=== PATIENT | female | born 1950 | race Caucasian/White ===

== ENCOUNTER 2023-12-24 12:07 | Emergency (ER) | payer MEDICARE, OTHER, SELFPAY ==
[2023-12-24] VITALS (11 sets, daily range): BP systolic 117–164; BP diastolic 58–146; PULSE 71–74; BMI 28.8
[2023-12-24 12:34] LABS: % Basophils 0.4 % (0-2); % Eosinophils 3.7 % (0-6); % Immature Granulocytes 0.2 % (0-0.5); % Lymphocytes 21.8 % (20.5-51.1); % Monocytes 7.3 % (1.7-9.3); % Neutrophils 66.6 % (42.2-75.2); Absolute Eosinophils 0.2 10^3/uL (0-0.7); Absolute Lymphocytes 1.2 10^3/uL (1.2-3.4); Absolute Monocytes 0.4 10^3/uL (0.1-0.6); Absolute Neutrophils 3.8 10^3/uL (1.4-6.5); Hematocrit 32.2 % (37.0-47.0); Hemoglobin 10.8 g/dL (12.0-16.0); Mean Corp Hgb Conc. 33.5 g/dL (33.0-37.0); Mean Corpuscular Hgb 29.9 pg (27.0-31.0); Mean Corpuscular Volume 89.2 fL (81.0-99.0); Mean Platelet Volume 9.9 fL (7.4-10.4); Nucleated Red Blood Cells % 0 %; Platelet Count 149 10^3/uL (130-400); Red Blood Cell Count 3.61 10^6/uL (4.20-5.40); Red Cell Dist. Width 13.2 % (11.5-14.5); White Blood Cell Count 5.7 10^3/uL (4.8-10.8)
[2023-12-24 12:49] LABS: INR 3.47; PT 35.5 Sec (11.4-14.6)
[2023-12-24 12:57] LABS: Troponin I < 0.012 ng/ml
[2023-12-24 13:00] LABS: ALT (SGPT) 15 U/L (0-35); AST (SGOT) 27 U/L (14-36); Albumin 3.6 g/dl (3.5-5.0); Alkaline Phosphatase 53 U/L (38-126); Blood Urea Nitrogen 20 mg/dl (7-17); Calcium 8.9 mg/dl (8.4-10.2); Carbon Dioxide 22 mmol/L (22-30); Chloride 106 mmol/L (98-107); Estimated Creatinine Clearance 50 ml/min; Glucose 97 mg/dl (70-99); Potassium 4.3 mmol/L (3.5-5.1); Sodium 137 mmol/L (135-145); Total Bilirubin 0.5 mg/dl (0.2-1.3); Total Protein 5.8 g/dl (6.3-8.2); eGFR 53.39
--- NOTE | 2023-12-24 13:42 | ED.GENMED ---
History of Present Illness
General
Chief Complaint: Fainting/Passed Out
Source: patient
Exam Limitations: none
Time Seen by Provider: 12/24/23 13:23
History of Present Illness
History of Present Illness:
73-year-old female on Coumadin for history of stroke several years ago presents after what sounds like syncopal episode. She was in the yard picking up some leaves and talking to her neighbor. Her neighbor noticed her to be faint and pale in
color. The patient remembers feeling faint and her neighbor let her down to the ground the patient remembers waking up on the ground. She apparently sustained no injuries from this episode. There was no preceding chest pain. No shortness of
breath. She is left with a sensation of fatigue and pressure in her head. She denies vision changes unilateral weakness. No recent nausea vomiting fever. She denies any recent bleeding however she was admitted overnight at [facility] 3
weeks ago for hematuria and suspected urinary tract infection. She took 2 doses of the antibiotics but did not finish them. She has no urinary symptoms currently.
Phy Exam
Physical Exam
Physical Exam:
General: Well-appearing female no acute respiratory distress
HEENT: Normal cephalic atraumatic pupils equal round reactive to light
Heart: Regular rate and rhythm no murmur
Lungs: Clear no wheeze
Neurologic exam: Alert and oriented x 3 no facial asymmetry no drift on exam pupils equal round react light extract motion intact no nystagmus finger-nose [id number] intact
Skin is warm no rash
Extremities: No cyanosis
Course
Orders/Labs/Results
Orders:
Orders
12/24/23 12:23
Complete Blood Count/With Diff Urgent
Comprehensive Metabolic Panel Urgent
Prothrombin Time Urgent
Troponin I Urgent
12/24/23 12:41
EKG [Electrocardiogram (*1)] Urgent
Reason for Study: Fatigue / Weakness
EKG- Treatment ONCE
12/24/23 13:41
CT Head W/o Iv Contrast Urgent
Comment:
Reason For Exam: syncope
Orthostatic VS- Treatment ONCE
12/24/23 13:50
Urinalysis Reflex To Culture Urgent
Date Specimen was Collected: 12/24/23
Time Specimen was Collected: 13:46
Abnormal Lab Results
12/24/23 12/24/23
12:23 13:50
RBC 3.61 L 10^6/uL
(4.20-5.40)
Hgb 10.8 L g/dL
(12.0-16.0)
Hct 32.2 L %
(37.0-47.0)
PT 35.5 H Sec
(11.4-14.6)
BUN 20 H mg/dl
(7-17)
Creatinine 1.1 H mg/dL
(0.6-1.0)
Total Protein 5.8 L g/dl
(6.3-8.2)
Urine Ketones Trace A
(Negative)
12/24/23 12:23
12/24/23 12:23
Vital Signs
Initial and Last Documented VS:
Initial Vital Signs
Pulse BP
58 125/59
12/24/23 12:12 12/24/23 12:12
Last Documented Vital Signs
Temp Pulse Resp BP Pulse Ox
98.2 F 78 17 155/75 98
12/24/23 12:15 12/24/23 15:25 12/24/23 15:25 12/24/23 13:51 12/24/23 15:25
MDM/Problems Addressed
Differential Diagnosis Includes:
Syncope versus presyncope. Consider anemia versus electrolyte abnormality versus arrhythmia versus vasovagal response. She also has pressure in her head since the episode. She is anticoagulated. Will check INR and CT of head. Orthostatic vital
signs pending.
*Critical Care Note
Total Time (30-74mins, 75-104mins- exclusive of procedures): Not Applicable
Update Note
Update Note:
No arrhythmias noted on monitor here orthostatic vital signs are stable CT of the head shows an old infarct. INR is 3.4. She has been stable. She ambulated to the bathroom without any presyncopal symptoms. No further chest pain. Reassured
patient. Suspect possible vasovagal episode recommend follow-up with her family doctor.
ED Attending Note
-
Portions of this chart may have been created with voice recognition software.� Occasional wrong word or��sound alike� substitutions may have occurred due to the inherent limitations of voice recognition software.
Discharge Plan
Departure
Patient Disposition: Home (Routine Discharge)
Date of Disposition: 12/24/23
Time of Disposition: 15:35
Patient with high blood pressure during this ER visit?: No
Discharge Problem:
Syncope
Instructions: Syncope (Fainting) (DC)
Prescriptions:
No Action
warfarin 10 mg Tablet
10 mg PO DAILY
Referrals:
Eduar Cardoso MD [Family Provider] -
Activity Restrictions/Additional Instructions:
Please return here for worsening symptoms. As discussed, your INR today is 3.4. Follow-up with your family doctor for further recommendation consider either holding a dose or taking half of your scheduled dose tomorrow.
Interventions
Interventions:
*Risk Screen - Suicide Last Done: 12/24/23 12:15
*General Assessment Last Done: 12/24/23 12:15
*Neglect/Abuse Screening Last Done: 12/24/23 12:15
ED- Fall Risk Assessment Last Done: 12/24/23 12:15
*ED COVID-19 Vaccine History Last Done: 12/24/23 12:15
ED- Cardiac Assessment Last Done: 12/24/23 12:15
ED- Neurological Assessment Last Done: 12/24/23 12:34
Discharge Date and Time
Print Language: UPPER SORBIAN
[2023-12-24 14:14] LABS: Urine Albumin Negative (Neg - Trace); Urine Bilirubin Negative (Negative); Urine Character Clear (Clear); Urine Color Yellow; Urine Glucose Negative (Negative); Urine Ketone Trace (Negative); Urine Leukocyte Negative (Negative); Urine Nitrite Negative (Negative); Urine Occult Blood Negative (Negative); Urine Urobilinogen Negative (Neg - 1+); Urine pH 6.5 (5.0-9.0)
== END 2023-12-24 16:17 | disposition home or self-care (01) ==
LOC: EMR 12:07
PROVIDERS: Emergency Medicine; Physician Assistant; EMERGENCY PHYSICIAN Emergency Medicine; FAMILY PHYSICIAN Internal Medicine
DX: R55 Syncope and collapse (principal); Z79.01 Long term (current) use of anticoagulants; Z86.73 Personal history of transient ischemic attack (TIA), and cerebral infarction without residual deficits
CPT/HCPCS: 99284; 70450; 80053; 81003; 84484; 85025; 85610; 93005

== ENCOUNTER 2024-01-08 06:29 | Observation (INO) | payer MEDICARE, OTHER, SELFPAY ==
[2024-01-08] VITALS (19 sets, daily range): BP systolic 130–181; BP diastolic 62–93; PULSE 68–88; BMI 27.9
[2024-01-08 01:29] LABS: % Basophils 0.7 % (0-2); % Eosinophils 4.6 % (0-6); % Immature Granulocytes 0.3 % (0-0.5); % Lymphocytes 31.1 % (20.5-51.1); % Monocytes 7.9 % (1.7-9.3); % Neutrophils 55.4 % (42.2-75.2); Absolute Eosinophils 0.3 10^3/uL (0-0.7); Absolute Lymphocytes 1.9 10^3/uL (1.2-3.4); Absolute Monocytes 0.5 10^3/uL (0.1-0.6); Absolute Neutrophils 3.4 10^3/uL (1.4-6.5); Hemoglobin 11.1 g/dL (12.0-16.0); Mean Corp Hgb Conc. 34.7 g/dL (33.0-37.0); Mean Corpuscular Hgb 29.5 pg (27.0-31.0); Mean Corpuscular Volume 85.1 fL (81.0-99.0); Mean Platelet Volume 9.7 fL (7.4-10.4); Nucleated Red Blood Cells % 0 %; Platelet Count 151 10^3/uL (130-400); Red Blood Cell Count 3.76 10^6/uL (4.20-5.40); Red Cell Dist. Width 13.4 % (11.5-14.5); White Blood Cell Count 6.1 10^3/uL (4.8-10.8)
[2024-01-08 01:36] LABS: INR 2.28; PT 25.6 Sec (11.4-14.6)
--- NOTE | 2024-01-08 01:42 | ED.GENMED ---
History of Present Illness
<SHAY Conti - Last Filed: 01/08/24 22:08>
General
Chief Complaint: Dizziness
Source: patient
Exam Limitations: none
Time Seen by Provider: 01/08/24 01:05
Nursing documentation reviewed up to this point in time: agreed with
History of Present Illness
History of Present Illness:
Patient is a 73yo F w/ recent visit to ER for syncope presents today w/ continued dizziness and new L arm pain. She has been seeing a belling machine operator, had echo, and just finished Holter monitoring. States she knows something is wrong w/ her heart but
she doesn't know what. L arm pain developed tonight and concerned pt that she was having an TN. She reports pain from anterior shoulder to elbow. States pain is not in shoulder but upper arm. Unable to describe quality of pain but reports it is
constant. Denies chest pain and numbness/tingling in either arm. Admits to mild CATHERINE in center of forehead radiating up scalp x5days. Reports lisinopril incr 5 to 10mg about 1.5wk ago.
Review of Systems
<SHAY Conti - Last Filed: 01/08/24 22:08>
Review of Systems
Constitutional: Denies fever, fatigue or chills
Respiratory: Reports trouble breathing; Denies cough
Cardiac: Reports syncope; Denies chest pain or palpitations
ABD/GI: Denies abdominal pain, nausea, vomiting, diarrhea or constipated
: Denies dysuria
Musculoskeletal: Reports muscle pain; Denies joint pain
Neurological: Reports headache; Denies dizzy, weakness or numbness
Phy Exam
<SHAY Conti - Last Filed: 01/08/24 22:08>
General Physical Exam
General Presentation: no apparent distress
General age: appears stated age
General Skin: warm and dry
General Habitus: normal
General Mental: alert
Cardiovascular Exam
Cardiovascular Exam: regular rate/rhythm, no edema, no gallop and no murmur
Pulmonary Exam
Pulmonary Exam: lungs clear, no respiratory distress, no rales, no crackles, no rhonchi and no wheezing
Neurological Exam
Neurological Exam: alert, oriented x3, no motor deficits, no sensory deficits and speech normal
Musculoskeletal Exam
Musculoskeletal Exam: full ROM, no edema and other (TTP over L bicipital groove )
Course
<Fiona Serrano, STPA - Last Filed: 01/08/24 22:08>
Orders/Labs/Results
Orders:
Orders
01/08/24 01:06
EKG [Electrocardiogram (*1)] Urgent
Reason for Study: Vertigo / Dizzy
EKG- Treatment ONCE
01/08/24 01:15
Complete Blood Count/With Diff Urgent
Comprehensive Metabolic Panel Urgent
PT/INR [Prothrombin Time] Urgent
Troponin I Urgent
01/08/24 02:44
Orthostatic VS- Treatment ONCE
01/08/24 02:45
CXR2 [CR Chest - 2 Views ] Urgent
Comment:
Reason For Exam: SOB
01/08/24 05:27
CT Head W/o Iv Contrast Urgent
Comment:
Reason For Exam: dizziness
01/08/24 Breakfast
Cholesterol Lowering
At Your Request: Full Participation
Does patient need a safe tray?: No
Fluid Restriction: 1500 mL/day (50 oz)
Cholesterol Lowering: Sodium, 2 Gram
01/08/24 06:10
Admit/Transfer Patient As Directed
Co-Sign Provider:
Level of Care: Observation services
Assign to:: Telemetry
Physician / Group: Hospitalist
Diagnosis: Dizziness
Reason for Telemetry: Syncope
Date to Stop Telemetry: 01/10/24
Time to Stop Telemetry: 11:00
Code Status As Directed
Resuscitation Status: Full Code
PRN Pain Medication Management As Directed
May give lesser potent ordered pain med per pt: Yes
preference::
Protocol:: Medication orders for pain may be administered in a
manner that supports deferring to patient preference
when the pt is:
- Requesting an ordered lesser potent pain medication.
Least to most potent pain medications are defined
as: acetaminophen < NSAID < tramadol < opioids
(morphine, oxycodone, hydromorphone).
- Requesting a lesser dose of the same medication IF
ORDERED.
- Requesting a less intrusive route of administration
if both routes are prescribed by the provider (PO <
IV).
01/08/24 07:33
Acetaminophen [Tylenol] 650 mg PO Q4HPRN PRN
Bisacodyl [Dulcolax] 10 mg RECTAL [id number] PRN
Docusate W/Senna [Senokot-S] 1 tablet PO BIDPRN PRN
Ondansetron Injectable [Zofran] 4 mg IV Q6HPRN PRN
Polyethylene Glycol Powder [Miralax] 17 grams PO DAILYPRN PRN
01/08/24 07:33
CT Head & Neck Angio W/wo IV Urgent
Comment:
Reason For Exam: possible subacute CVA, assess posterior circulatio
VTE Contraindication Routine
VTE Mechanical Device Contraindication: Medical Contraindication
Pharmocologic Contraindication: Medical Contraindication
Activity As Directed
Activity Level: With Assistance
Medical Records Request [Obtain Records] As Directed
Dates of Information to be Released: Dec 23 to January 07 2024
Type of Information Requested: Consults
ECG/Cardiology Results
Obtain Records from: Dr. Andre Rucker [phone], [address] [facility]
Vital Signs As Directed
Frequency: Per unit guidelines
01/08/24 08:00
Lacosamide [Vimpat] 150 mg PO BID
Lisinopril [Zestril] 10 mg PO DAILY
Warfarin [Coumadin] 10 mg PO DAILY
01/08/24 16:42
Urine Osmolality Random [Osmolality, Random Urine] Routine
Date Specimen was Collected: 01/08/24
Time Specimen was Collected: 16:36
Urine Sodium Routine
Date Specimen was Collected: 01/08/24
Time Specimen was Collected: 16:36
01/09/24 06:00
Basic Metabolic Panel IN AM
TSH Reflex To Free T4 IN AM
01/10/24 11:00
DC Protocol for Telemetry ONCE
Abnormal Lab Results
01/08/24
01:15
RBC 3.76 L 10^6/uL
(4.20-5.40)
Hgb 11.1 L g/dL
(12.0-16.0)
Hct 32.0 L %
(37.0-47.0)
PT 25.6 H Sec
(11.4-14.6)
Sodium 133 L mmol/L
(135-145)
Glucose 109 H mg/dl
(70-99)
01/08/24 01:15
01/08/24 01:15
Vital Signs
Initial and Last Documented VS:
Initial Vital Signs
Temp Pulse Resp BP Pulse Ox
97.5 F 78 16 174/89 99
01/08/24 01:07 01/08/24 01:07 01/08/24 01:07 01/08/24 01:07 01/08/24 01:07
Last Documented Vital Signs
Temp Pulse Resp BP Pulse Ox
97.9 F 78 18 169/77 98
01/08/24 19:33 01/08/24 19:33 01/08/24 19:33 01/08/24 19:33 01/08/24 19:33
<Damaso Waite, DO - Last Filed: 01/08/24 05:27>
Orders/Labs/Results
Orders:
Orders
01/08/24 01:06
EKG [Electrocardiogram (*1)] Urgent
Reason for Study: Vertigo / Dizzy
EKG- Treatment ONCE
01/08/24 01:15
Complete Blood Count/With Diff Urgent
Comprehensive Metabolic Panel Urgent
PT/INR [Prothrombin Time] Urgent
Troponin I Urgent
01/08/24 02:44
Orthostatic VS- Treatment ONCE
01/08/24 02:45
CXR2 [CR Chest - 2 Views ] Urgent
Comment:
Reason For Exam: SOB
01/08/24 05:27
CT Head W/o Iv Contrast Urgent
Comment:
Reason For Exam: dizziness
01/08/24 Breakfast
Cholesterol Lowering
At Your Request: Full Participation
Does patient need a safe tray?: No
Fluid Restriction: 1500 mL/day (50 oz)
Cholesterol Lowering: Sodium, 2 Gram
01/08/24 06:10
Admit/Transfer Patient As Directed
Co-Sign Provider:
Level of Care: Observation services
Assign to:: Telemetry
Physician / Group: Hospitalist
Diagnosis: Dizziness
Reason for Telemetry: Syncope
Date to Stop Telemetry: 01/10/24
Time to Stop Telemetry: 11:00
Code Status As Directed
Resuscitation Status: Full Code
PRN Pain Medication Management As Directed
May give lesser potent ordered pain med per pt: Yes
preference::
Protocol:: Medication orders for pain may be administered in a
manner that supports deferring to patient preference
when the pt is:
- Requesting an ordered lesser potent pain medication.
Least to most potent pain medications are defined
as: acetaminophen < NSAID < tramadol < opioids
(morphine, oxycodone, hydromorphone).
- Requesting a lesser dose of the same medication IF
ORDERED.
- Requesting a less intrusive route of administration
if both routes are prescribed by the provider (PO <
IV).
01/08/24 07:33
Acetaminophen [Tylenol] 650 mg PO Q4HPRN PRN
Bisacodyl [Dulcolax] 10 mg RECTAL [id number] PRN
Docusate W/Senna [Senokot-S] 1 tablet PO BIDPRN PRN
Ondansetron Injectable [Zofran] 4 mg IV Q6HPRN PRN
Polyethylene Glycol Powder [Miralax] 17 grams PO DAILYPRN PRN
01/08/24 07:33
CT Head & Neck Angio W/wo IV Urgent
Comment:
Reason For Exam: possible subacute CVA, assess posterior circulatio
VTE Contraindication Routine
VTE Mechanical Device Contraindication: Medical Contraindication
Pharmocologic Contraindication: Medical Contraindication
Activity As Directed
Activity Level: With Assistance
Medical Records Request [Obtain Records] As Directed
Dates of Information to be Released: Dec 23 to January 07 2024
Type of Information Requested: Consults
ECG/Cardiology Results
Obtain Records from: Dr. Andre Rucker [phone], [address] [facility]
Vital Signs As Directed
Frequency: Per unit guidelines
01/08/24 08:00
Lacosamide [Vimpat] 150 mg PO BID
Lisinopril [Zestril] 10 mg PO DAILY
Warfarin [Coumadin] 10 mg PO DAILY
01/08/24 16:42
Urine Osmolality Random [Osmolality, Random Urine] Routine
Date Specimen was Collected: 01/08/24
Time Specimen was Collected: 16:36
Urine Sodium Routine
Date Specimen was Collected: 01/08/24
Time Specimen was Collected: 16:36
01/09/24 06:00
Basic Metabolic Panel IN AM
TSH Reflex To Free T4 IN AM
01/10/24 11:00
DC Protocol for Telemetry ONCE
Abnormal Lab Results
01/08/24
01:15
RBC 3.76 L 10^6/uL
(4.20-5.40)
Hgb 11.1 L g/dL
(12.0-16.0)
Hct 32.0 L %
(37.0-47.0)
PT 25.6 H Sec
(11.4-14.6)
Sodium 133 L mmol/L
(135-145)
Glucose 109 H mg/dl
(70-99)
01/08/24 01:15
01/08/24 01:15
Vital Signs
Initial and Last Documented VS:
Initial Vital Signs
Temp Pulse Resp BP Pulse Ox
97.5 F 78 16 174/89 99
01/08/24 01:07 01/08/24 01:07 01/08/24 01:07 01/08/24 01:07 01/08/24 01:07
Last Documented Vital Signs
Temp Pulse Resp BP Pulse Ox
97.9 F 78 18 169/77 98
01/08/24 19:33 01/08/24 19:33 01/08/24 19:33 01/08/24 19:33 01/08/24 19:33
<SHAY Conti - Last Filed: 01/08/24 22:08>
*Critical Care Note
Total Time (30-74mins, 75-104mins- exclusive of procedures): Not Applicable
<Damaso Waite DO - Last Filed: 01/08/24 05:27>
Update Note
Update Note:
01/08/2024 0527 AM
ED Attending Note
<SHAY Conti - Last Filed: 01/08/24 22:08>
-
Portions of this chart may have been created with voice recognition software.� Occasional wrong word or��sound alike� substitutions may have occurred due to the inherent limitations of voice recognition software.
<Damaso Waite DO - Last Filed: 01/08/24 05:27>
ED Attending Note
Patient seen and examined by attending physician: Yes
I performed the substantive portion of visit, reviewed & personally made and approve the management plan that is documented in note by myself or EUSEBIA.: Yes
ED Attending Note:
Pleasant 73-year-old female presents to the emergency department with dizziness. Patient also reports having a syncopal episode earlier today. Patient has been seen by Dr. Rucker for the dizziness and syncope. She had an echo cardiogram and has
been on a Holter monitor. Patient states that she has an appointment tomorrow morning with her belling machine operator for follow-up. Denies fevers, chills, chest pain, or shortness of breath. Patient was seen in conjunction with the PA student. I have
reviewed and agree with the history and treatment plan presented. On my independent physical exam, patient is awake, alert, and oriented x3 no acute distress. Heart is regular rate rhythm. Lungs are clear to auscultation bilaterally without
wheezes rales or rhonchi. Abdomen is soft nontender to deep or superficial palpation. Normal bowel sounds. Moves all 4 extremities.
Discharge Plan
Departure
Patient Disposition: Admit
Date of Disposition: 01/08/24
Time of Disposition: 04:35
Admit to: Med/Surg
Presentation/result/management discussed w/ accepting MD/DO: Hospitalist
Patient with high blood pressure during this ER visit?: Yes
Condition: Good
Discharge Problem:
Dizziness
Interventions
Interventions:
*Risk Screen - Suicide Last Done: 01/08/24 01:07
*General Assessment Last Done: 01/08/24 01:07
*Neglect/Abuse Screening Last Done: 01/08/24 01:07
ED- Fall Risk Assessment Last Done: 01/08/24 01:15
*ED COVID-19 Vaccine History Last Done: 01/08/24 07:23
*Nursing Disposition Last Done: 01/08/24 07:23
ED- Cardiac Assessment Last Done: 01/08/24 01:41
ED- Neurological Assessment Last Done: 01/08/24 01:41
ED Swallowing Screen Last Done: 01/08/24 01:41
Discharge Date and Time
Discharge Date/Time: 01/08/24 07:24
[2024-01-08 01:43] LABS: ALT (SGPT) 15 U/L (0-35); AST (SGOT) 28 U/L (14-36); Alkaline Phosphatase 68 U/L (38-126); Blood Urea Nitrogen 17 mg/dl (7-17); Carbon Dioxide 26 mmol/L (22-30); Chloride 99 mmol/L (98-107); Estimated Creatinine Clearance 55 ml/min; Glucose 109 mg/dl (70-99); Potassium 3.9 mmol/L (3.5-5.1); Sodium 133 mmol/L (135-145); Total Bilirubin 0.6 mg/dl (0.2-1.3); Total Protein 6.4 g/dl (6.3-8.2); eGFR 59.86
[2024-01-08 01:49] LABS: Troponin I < 0.012 ng/ml
--- NOTE | 2024-01-08 05:52 | HPS.HSE ---
Family Physician
-
Family Physician: Eduar Cardoso
Chief Complaint
-
Lightheadedness
History of Present Illness
This is a 73-year-old female with past medical history significant for prior CVA for which she is on Coumadin, hypertension, history of absent seizures for which she is on lacosamide who presents to the emergency department with persistent episodes
of lightheadedness has been going on for about 3 weeks.
Patient reports onset of symptoms at least 3 weeks ago. He was seen in the ED then. She reports that she gets dizzy after standing for a short while. She also reports dizziness with rapidly standing up. She had an episode of presyncope 3 weeks
ago for which she presented to the emergency department. She denies having palpitations. Generally does not have chest pain. However she reports that she had some tingling sensation going down her left arm today which she thought may be
correlated with her heart. She reports mild shortness of breath as though she cannot take a deep breath. She denies any pleuritic symptoms. She has discontinued the Coumadin and denies any melena or hematochezia. INR has always been therapeutic.
She has been compliant with the lacosamide. During her last visit to the emergency department she was given IV fluids she was stable enough to ambulate and follow-up with her PMD and ultimately with a practice physician. She had extensive blood testing
and then had a cardiology follow-up with echo reported to be normal and Holter monitoring that she completed yesterday with intending follow-up with cardiology in 1 to 2 days.
Patient specifically denies vertigo. She denies any vision changes associated with this dizziness. She denies any headache but reports some sense of head fullness. She denies ataxia in the absence of the dizziness. Although the workup so far
been negative patient feels very strongly that she has persistent sensation of lightheadedness resulting in severe on dizziness and discomfort. Patient denies any urinary symptoms. She denies any nausea vomiting or diarrhea.
On arrival in the ED today she was hypertensive to 173/80 pulse was 76 and she was satting 97% on room air. ECG shows normal sinus rhythm at a rate of [address] or T wave changes. QTc was within normal limits. Troponin was negative.
Chest x-ray was clear without any infiltrates. Chemistries notable for a sodium of 133 which is trended down from a normal of 137 2 weeks ago but she has been drinking lots of water.
Medical History
Past Medical History
Past Medical History: Reports CVA and HTN
Additional Past Medical History:
Seizure d/o (absence seizures)
Past Surgical History: Reports Orthopedic (left forearm dislocation)
Social History
Tobacco: Non-smoker
Alcohol: None
Drug: None
Personal: Single
Living: Alone
Employment: Retired
Family History
Family History: Not pertinent
Allergies / Home Medications
Allergies reflects when Allergies were last updated in [facility].
Home Medications with original date entered in [facility]
Allergy/Medication List:
Allergies
Allergy/AdvReac Type Severity Reaction Status Date / Time
Penicillins Allergy Unknown Unknown Verified 01/08/24 01:40
Home Medications
warfarin 10 mg tablet 10 mg PO DAILY 12/24/23
Lacosamide 150mg tablet, 150mg PO BID
Lisinopril 10 mg tablet, 10 mg p.o. daily
Review of Systems
-
History Source: Patient
Constitutional: Reports No Symptoms
EENT: Reports No Symptoms
Respiratory: Reports No Symptoms
Cardiac: Reports No Symptoms
Abdomen/GI: Reports No Symptoms
: Reports No Symptoms
Musculoskeletal: Reports No Symptoms
Skin: Reports No Symptoms
Neurological: Reports Dizzy
Endocrine: Reports No Symptoms
Hematologic/Lymphatic: Reports No Symptoms
Psych: Reports No Symptoms
Physical Exam
Vital Signs
Vital Signs
Temp Pulse Resp BP Pulse Ox
97.5 F 76 17 173/80 98
01/08/24 01:07 01/08/24 04:17 01/08/24 04:17 01/08/24 04:17 01/08/24 04:00
Physical Exam
General: Well Developed, Well Nourished and Comfortable
HEENT: NormoCephalic, Anicteric, Moist mucous membranes and Atraumatic
Respiratory: Clear
Cardiac: S1/S2 and Regular Rhythm
GI: Soft, Non Tender, Non Distended and Normal Bowel Sounds
Rectal: Deferred by Provider
Genito-urinary: Deferred by me
Musculoskeletal: No Clubbing, No Cyanosis and No Edema
Skin: Warm
Neuro: AO x 3 and Nonfocal/grossly intact
Hematologic/Lymphatic: No Lymphadenopathy
Psych: Anxious
Laboratory Results
-
01/08/24 01:15
01/08/24 01:15
Laboratory Results
PT 25.6 Sec (11.4-14.6) H 01/08/24 01:15
INR 2.28 01/08/24 01:15
Total Bilirubin 0.6 mg/dl (0.2-1.3) 01/08/24 01:15
AST 28 U/L (14-36) 01/08/24 01:15
ALT 15 U/L (0-35) 01/08/24 01:15
Alkaline Phosphatase 68 U/L (38-126) 01/08/24 01:15
Troponin I < 0.012 ng/ml 01/08/24 01:15
Data Reviewed
-
Diagnostic Radiology: Image Personally Visualized and interpreted
Medical Tests (Nuc Med, Echo, EKG etc): Image Personally Visualized and interpreted
Lab Data: Labs Reviewed by me
Old Records: Reviewed
Impression/Plan
-
IMPRESSION:
Patient with h/o CVA and seizures presenting with 3 weeks of recurrent lightheadedness that appears orthostatic as often associated with standing and almost never while supine or sitting. ED w/u on both occasions have been negative. She apparently
had echo done with Dr. Andre Rucker that was reported to be without acute abnormalities. No evidence of heart failure. No evidence of acute stroke. No evidence of any blood loss. She has been having rising BP since episode began but she did not
have positive orthostatic findings in the ED. Suppose to get f/u with cardiology today 01/07.
PLAN:
1. Dizziness - Dizziness that appears orthostatic with normal orthostatic vital signs and so far negative cardiac w/u. Prior CVA on coumadin without residual deficits and no new current symptoms. ECG is non-ischemic, no arrhythmia. Normal
troponin. Xray clear and no signs of infection. Labs WNL. INR therapeutic. She is quite anxious because the sensation is incongruent with w/u thus far.
- admit to obs/telemetry
- check telemetry x 24 hours and correlate with symptoms
- obtain records from Dr. Rucker of recent echo. Perhaps we can get holter records today
- given persistent of symptoms unlikely CVA but cannot rule out vertebrobasilar insufficency. will get CT CTA
2. Hyponatremia - Na 133 down from 137. Patient has had increased water intake, is hypertensive and on lacosamide. She is not dehydrated.
- check urine osms
- intracranial imaging with CT / CTA
- mild fluid restriction for now
3. Seizures
- continue lacosamide
4. PT evaluation
DVT PPX - on coumadin
Code Status - Full Code
--- NOTE | 2024-01-08 08:34 | PTCARENOTE ---
Received patient from ED via stretcher approx 7:30am. Pt AAOX3. NSR on tele monitor. Pox: 97% RA. Patient denies pain/SOB. Call segovia within reach. Plan of care ongoing.
[2024-01-08] MEDS: ZESTRIL 10 MG PO (09:46)
[2024-01-08] MEDS: VIMPAT 150 MG PO ×2 (09:46→19:28)
--- NOTE | 2024-01-08 12:32 | W.PN.UPDATE ---
Update Note
Progress Note Update
Seen and examined independent of pulmonary physician. Nonbillable note.
States of intermittent fogginess and dizziness. States dizziness usually happens upon standing up. States not feeling like herself.
States underwent echocardiogram and Holter monitoring outpatient with cardiology. Awaiting results.
Denies any chest pain or palpitation or seizure-like episode.
Denies any aggravating or alleviating factors.
General: Well Developed, Well Nourished and Comfortable
HEENT: NormoCephalic, Anicteric, Moist mucous membranes and Atraumatic
Respiratory: Clear
Cardiac: S1/S2 and Regular Rhythm
GI: Soft, Non Tender, Non Distended and Normal Bowel Sounds
Rectal: Deferred by Provider
Genito-urinary: Deferred by me
Musculoskeletal: No Clubbing, No Cyanosis and No Edema
Skin: Warm
Neuro: AO x 3 and Nonfocal/grossly intact
Hematologic/Lymphatic: No Lymphadenopathy
Psych: Anxious
IMPRESSION:
Patient with h/o CVA and seizures presenting with 3 weeks of recurrent lightheadedness that appears orthostatic as often associated with standing and almost never while supine or sitting. ED w/u on both occasions have been negative. She apparently
had echo done with Dr. Andre Rucker that was reported to be without acute abnormalities. No evidence of heart failure. No evidence of acute stroke. No evidence of any blood loss. She has been having rising BP since episode began but she did not
have positive orthostatic findings in the ED. Suppose to get f/u with cardiology today 01/07.
PLAN:
1. Dizziness - Dizziness that appears orthostatic with normal orthostatic vital signs and so far negative cardiac w/u. Prior CVA on coumadin without residual deficits and no new current symptoms. ECG is non-ischemic, no arrhythmia. Normal
troponin. Xray clear and no signs of infection. Labs WNL. INR therapeutic. She is quite anxious because the sensation is incongruent with w/u thus far.
- check telemetry x 24 hours and correlate with symptoms -no events on tele noted.
- obtain records from Dr. Rucker of recent echo. awaiting records
- given persistent of symptoms unlikely CVA but cannot rule out vertebrobasilar insufficiency. will get CT CTA. CT angiogram no evidence of acute intracranial pulm artery. Stable encephalomalacia in the right hemisphere compatible with old
infarction. No significant narrowing of the vertebrobasilar circulation. No significant narrowing of the posterior cerebral arteries. Minimal calcification involving the right carotid bulb. No significant narrowing of the carotid bulbs or proximal
internal carotid arteries bilaterally. No significant narrowing of the cervical and intracranial internal carotid arteries bilaterally.
Normal appearance of the anterior cerebral and middle cerebral arteries bilaterally.
-Check MR brain to r/o posterior CVA
2. Hyponatremia - Na 133 down from 137. Patient has had increased water intake, is hypertensive and on lacosamide. She is not dehydrated.
- check urine osms
- mild fluid restriction for now
3. Seizures
- continue lacosamide
4. Primary HTN
-on 10mg lisinopril. Patient said her symptoms started once lisinopril dose was increased. Patient blood pressure elevated. ortho negative.
DVT PPX - on coumadin
Code Status - Full Code
[2024-01-08] MEDS: NIZORAL 2% CREAM 1 APPLIC TOPICAL ×2 (12:50→19:28)
[2024-01-08 17:06] LABS: Osmolality Urine 263 mOsm/kg (300-900)
[2024-01-08 17:17] LABS: Urine Sodium 80 mmol/L (30-90)
[2024-01-08] MEDS: LIPITOR 20 MG PO (17:21)
[2024-01-08] MEDS: COUMADIN 10 MG PO (17:21)
[2024-01-09 04:23] VITALS: BP 121/70
[2024-01-09 07:25] VITALS: BP 113/65
[2024-01-09 07:27] LABS: INR 2.14
[2024-01-09 07:35] LABS: Blood Urea Nitrogen 16 mg/dl (7-17); Calcium 9.5 mg/dl (8.4-10.2); Carbon Dioxide 24 mmol/L (22-30); Chloride 106 mmol/L (98-107); Estimated Creatinine Clearance 54 ml/min; Glucose 95 mg/dl (70-99); Potassium 4.1 mmol/L (3.5-5.1); Sodium 141 mmol/L (135-145); eGFR 59.86
[2024-01-09 08:01] LABS: TSH Reflex To Free T4 5.07 uIU/ml (0.47-4.68)
[2024-01-09 08:30] LABS: Free T4 1.38 ng/dl (0.78-2.19)
[2024-01-09] MEDS: NIZORAL 2% CREAM 1 APPLIC TOPICAL (09:04)
[2024-01-09] MEDS: VIMPAT 150 MG PO (09:08)
[2024-01-09] MEDS: ZESTRIL 10 MG PO (09:09)
[2024-01-09 11:59] VITALS: BP 148/80
--- NOTE | 2024-01-09 12:00 | W.PN.HOSP.TC ---
Today's Communication/Plan
-
Dispo pending vestibular therapy. Plan for tentative home later today.
Monitor symptomology
Assessment / Plan
Assessment / Plan
General: Well Developed, Well Nourished and Comfortable
HEENT: NormoCephalic, Anicteric, Moist mucous membranes and Atraumatic
Respiratory: Clear
Cardiac: S1/S2 and Regular Rhythm
GI: Soft, Non Tender, Non Distended and Normal Bowel Sounds
Rectal: Deferred by Provider
Genito-urinary: Deferred by me
Musculoskeletal: No Clubbing, No Cyanosis and No Edema
Skin: Warm
Neuro: AO x 3 and Nonfocal/grossly intact
Hematologic/Lymphatic: No Lymphadenopathy
Psych: Anxious
IMPRESSION:
Patient with h/o CVA and seizures presenting with 3 weeks of recurrent lightheadedness that appears orthostatic as often associated with standing and almost never while supine or sitting. ED w/u on both occasions have been negative. She apparently
had echo done with Dr. Andre Rucker that was reported to be without acute abnormalities. No evidence of heart failure. No evidence of acute stroke. No evidence of any blood loss. She has been having rising BP since episode began but she did not
have positive orthostatic findings in the ED. Suppose to get f/u with cardiology today 01/07.
PLAN:
1. Dizziness likely 2/2 BPPV
- Prior CVA on coumadin without residual deficits and no new current symptoms. ECG is non-ischemic, no arrhythmia. Normal troponin. Xray clear and no signs of infection. Labs WNL. INR therapeutic.
- check telemetry x 24 hours and correlate with symptoms -no events on tele noted.
- obtain records from Dr. Rucker of recent echo. awaiting records
- given persistent of symptoms unlikely CVA but cannot rule out vertebrobasilar insufficiency. will get CT CTA. CT angiogram no evidence of acute intracranial pulm artery. Stable encephalomalacia in the right hemisphere compatible with old
infarction. No significant narrowing of the vertebrobasilar circulation. No significant narrowing of the posterior cerebral arteries. Minimal calcification involving the right carotid bulb. No significant narrowing of the carotid bulbs or proximal
internal carotid arteries bilaterally. No significant narrowing of the cervical and intracranial internal carotid arteries bilaterally.
Normal appearance of the anterior cerebral and middle cerebral arteries bilaterally.
-MRI of the brain with no evidence of acute infarct. Large chronic transcortical ischemic infarct in the right parietal lobe noted. Other infarct in the left side noted. Severe discogenic degenerative arthritis of the cervical spine noted.
Patient requested MRI report printed and given copy as she can follow-up outpatient.
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
-Try meclizine as needed and physical therapy for vestibular section.
2. Hyponatremia -resolved
3. Seizures
- continue lacosamide
4. Primary HTN
-on 10mg lisinopril. Patient said her symptoms started once lisinopril dose was increased. Patient blood pressure elevated. ortho negative.
DVT PPX - on coumadin
Code Status - Full Code
Dispo pending vestibular therapy. Plan for tentative home later today.
Anticipated Discharge: Today
Subjective/Interval History
-
Date of Service: January 09, 2024
Worked with physical therapy yesterday
Denies any focal weakness
Objective Data
-
Labs:
Laboratory Results
01/09/24
05:55
PT 24.0 H
INR 2.14
Sodium 141 D
Potassium 4.1
Chloride 106
Carbon Dioxide 24
BUN 16
Creatinine 1.0
Glucose 95
Calcium 9.5
Vital Signs:
Vital Signs
Temp Pulse Resp BP Pulse Ox
98.4 F 75 20 148/80 96
01/09/24 11:59 01/09/24 11:59 01/09/24 11:59 01/09/24 11:59 01/09/24 11:59
I&O
01/08/24 01/09/24 01/10/24
06:59 06:59 06:59
Intake Total 960 / 960
Balance 960 / 960
Data Reviewed
-
Total Time Spent with Patient (in minutes): 55
--- NOTE | 2024-01-09 12:25 | CM ---
Addendum entered by Mary Jiménez 01/09/24 14:23:
DC order noted
Plans for outpt vestibular therapy on dc
Hard script requested and DH outpt therapy info provided in dc folder
Update to pt bedside who is in agreement with plan
WC van scheduled for 5pm pickup
[facility] number provided for payment
Discharge Disposition- home with outpt vestibular therapy via WC van (5PM pickup)
Original Note:
CM met with pt bedside
Pt resides alone in a 2SH with 0STE thru garage
13 steps up to full bed and bath
Pt is indep with her ADLs- denies use of DMEs
Denies financial insecurities
PCP- Eduar Cardoso
Rx- Richard/Marilyn
PT/OT with recs for outpt therapy
ADC later today pending continued therapy assessment
Pt requesting ride home on discharge
Call with [facility]- no WC van available
Can transport [facility] but will charge WC van costs which is $115
Pt is in agreement with plan
Transport form on chart
Pt is OBS- HANNA verbally reviewed
Copy provided
Discharge Disposition- home, anticipate with outpt therapy
--- NOTE | 2024-01-09 14:07 | W.DCSUMMARY ---
Discharge Summary
Discharge Data
Date of Admission: 01/08/24
Date of Discharge: 01/09/24
-
Pending Results: No
Hospital Course
73-year-old female past medical history of seizures, primary hypertension, multiple CVA who is presenting to the ER with complaints of dizziness. Patient was recently seen in ER received IV fluid and was discharged with recommendation to follow-up
with outpatient cardiology. Patient outpatient cardiology performed echocardiogram and placed Holter monitor. Records were requested but never received. Patient was admitted to hospital monitor on telemetry. No events were noted. Troponin were
checked found to be negative. Patient without any chest pain palpitation at rest or with exertion. CTA of the head and neck was performed T angiogram no evidence of acute intracranial pulm artery. Stable encephalomalacia in the right hemisphere
compatible with old infarction. No significant narrowing of the vertebrobasilar circulation. No significant narrowing of the posterior cerebral arteries. Minimal calcification involving the right carotid bulb. No significant narrowing of the
carotid bulbs or proximal internal carotid arteries bilaterally. No significant narrowing of the cervical and intracranial internal carotid arteries bilaterally. Normal appearance of the anterior cerebral and middle cerebral arteries bilaterally.
Patient also underwent MRI of the brain which showed No MRI evidence for acute infarct. LARGE CHRONIC TRANSCORTICAL ISCHEMIC INFARCT in the RIGHT PARIETAL LOBE with associated encephalomalacia. Small chronic transcortical ischemic infarct in the
anterolateral left frontal lobe. 1.1 cm chronic ischemic infarct in the posterior left cerebellar hemisphere. Moderate diffuse cerebral and cerebellar volume loss. Tiny chronic intraparenchymal microhemorrhage in the lateral left frontal lobe.
Severe discogenic degenerative disease at C4/C5 and C5/C6 with a disc-osteophyte complex at C4/C5 causing mild to moderate spinal cord compression and central canal stenosis. Patient INR was therapeutic. Patient worked with physical therapy.
Patient dizziness likely suspected due to BPPV and underwent vestibular therapy. Patient was prescribed meclizine and recommend to follow-up outpatient with vestibular therapy. Patient symptoms improved. All signs were stable.
Discharge Plan
-
Patient Disposition: Home (Routine Discharge)
Discharge Diagnosis/Procedures: Patient is likely secondary to BPPV
Hyponatremia
Condition: Fair
Diet: Low Cholesterol
Activity: As tolerated
Driving Restrictions: Not until seen by your Dr
Blood Work: Repeat thyroid function testing in 4 weeks with primary doctor
Other Services: PT
Activity Restrictions/Additional Instructions:
Recommend outpatient vestibular therapy via primary doctor.
Referrals:
Eduar Cardoso MD [Family Provider] - in less than 1 week
Prescriptions:
New
meclizine 25 mg tablet
25 mg PO BID PRN (Reason: dizziness) Qty: 20 0RF
Continued
warfarin 10 mg Tablet
10 mg PO DAILY
atorvastatin 20 mg Tablet
20 mg PO QPM
lisinopril 10 mg Tablet
10 mg PO DAILY
ketoconazole 2 % Cream
1 applic TOPICAL BID
Rx Instructions:
R Breast
lacosamide [Vimpat] 150 mg Tablet
150 mg PO BID
Discharge Orders:
Discharge Patient (As Directed); Ordered 01/09/24
Ordered By: Nickolas Lassiter
Discharge Date and Time
Print Language: [place]
[2024-01-09 15:29] VITALS: BP 116/73
== END 2024-01-09 16:44 | disposition home or self-care (01) ==
LOC: 4 WEST ACU 06:29
PROVIDERS: ADMITTING PHYSICIAN Internal Medicine; ATTENDING PHYSICIAN Hospitalist; EMERGENCY PHYSICIAN Student in an Organized Health Care Education/Training Program; FAMILY PHYSICIAN Internal Medicine
DX: R42 Dizziness and giddiness (principal); R55 Syncope and collapse; E87.1 Hypo-osmolality and hyponatremia; M79.602 Pain in left arm; R51.9 Headache, unspecified; R06.02 Shortness of breath; I10 Essential (primary) hypertension; R56.9 Unspecified convulsions; G93.89 Other specified disorders of brain; M41.9 Scoliosis, unspecified; R94.31 Abnormal electrocardiogram [ECG] [EKG]; M47.812 Spondylosis without myelopathy or radiculopathy, cervical region; M25.78 Osteophyte, vertebrae; M50.021 Cervical disc disorder at C4-C5 level with myelopathy; M48.02 Spinal stenosis, cervical region; M50.022 Cervical disc disorder at C5-C6 level with myelopathy; Z90.49 Acquired absence of other specified parts of digestive tract; Z60.2 Problems related to living alone; Z86.73 Personal history of transient ischemic attack (TIA), and cerebral infarction without residual deficits; Z79.01 Long term (current) use of anticoagulants; Z88.0 Allergy status to penicillin
CPT/HCPCS: 70450; 70496; 70498; 70551; 71046; 80048; 80053; 83935; 84300; 84439; 84443; 84484; 85025; 85610; 93005; 97112; 97116; 97161; 97166; 99285; G0378; Q9967

== ENCOUNTER → 2024-07-13 12:18 | Outpatient (REF) | payer MEDICARE, OTHER, SELFPAY | LOC: HWWDC 12:18 | PROVIDERS: ATTENDING PHYSICIAN Internal Medicine | DX: Z12.31 Encounter for screening mammogram for malignant neoplasm of breast (principal) | CPT/HCPCS: 77063; 77067 ==